=== PATIENT | female | born 1975 | race Caucasian/White ===

== ENCOUNTER 2018-11-14 12:10 | Observation (INO) | payer BC, MEDICAID, SELFPAY ==
[2018-11-14] MEDS ORDERED: Aspirin Chewable 81 MG TAB ONE (12:49)
--- NOTE | 2018-11-14 13:06 | RAD ---
PORTABLE CHEST 1 VIEW: DATE: 11/14/2018. TIME: 12:42 p.m. HISTORY: Chest pain. FINDINGS: Comparison is made to the exam of 09/26/2014. The heart size is normal. There are changes of median sternotomy. There is continued elevation of t he right hemidiaphragm. No focal areas of consolidation, pneumothoraces, or pleural effusions are se en. IMPRESSION: No acute process. POS: ILEANA
[2018-11-14 13:33] LABS: #Basophils 0.1 thou/uL (0.0-0.2); #Eosinphils 0.1 thou/uL (0.0-0.7); #Lymphocytes 1.5 thou/uL (1.20-3.40); #Monocytes 0.4 thou/uL (0.11-0.59); #Neutrophils 5.7 thou/uL (1.40-6.50); %Basophils 0.7 % (0.0-1.0); %Eosinophils 1.6 % (0.0-10.0); %Lymphocytes 18.8 % (21.0-51.0); %Monocytes 4.8 % (0.0-10.0); %Neutrophils 74.2 % (42.0-75.0); Mean Corpuscular Hemoglobin 32.7 pg (27.0-31.0); Mean Corpuscular Volume 96.1 fL (78.0-98.0); Mean Platelet Volume 7.1 fL (7.4-10.4); Platelet Count 314 thou/uL (130-400); RBC Distribution Width 10.9 % (11.5-14.5); Red Blood Cell (RBC) Count 4.29 mill/uL (4.20-5.40); White Blood Cell (WBC) Count 7.7 thou/uL (4.8-10.8)
[2018-11-14] MEDS ORDERED: Nitroglycerin 2% Ointment 1 INCH/1 GM Packet ONE (13:37)
[2018-11-14 13:38] LABS: PTT 29.4 SEC (22.9-36.1); Prothrombin Time 13.4 SEC (12.0-14.7)
[2018-11-14 13:40] LABS: ALT (SGPT) 20 U/L (8-55); AST (SGOT) 14 U/L (5-34); Albumin 4.3 g/dL (3.5-5.0); Alkaline Phosphatase 77 U/L (40-150); Anion Gap 14 mmol/L (10-20); BUN (Urea Nitrogen) 11 mg/dL (7.0-18.7); Bilirubin, Total 0.7 mg/dL (0.2-1.2); Calc. Creatinine Clearance 0 mL/min (70-130); Calcium 9.3 mg/dL (7.8-10.44); Carbon Dioxide 21 mmol/L (22-29); Chloride 108 mmol/L (98-107); Estimated GFR-MDRD 70; Globulin 3.1 g/dL (2.4-3.5); Glucose 120 mg/dL (70-105); Protein, Total 7.4 g/dL (6.0-8.3); Sodium 139 mmol/L (136-145)
[2018-11-14 13:42] LABS: D-Dimer Test Less than 0.27 *mcg/mL (0.27-0.43)
[2018-11-14] MEDS ORDERED: Acetaminophen 325 MG TAB PO PRN (14:48)
[2018-11-14] MEDS ORDERED: Guaifenesin DM 100-10/5 ML UDCUP PO PRN (14:48)
--- NOTE | 2018-11-14 15:24 | HP ---
REASON FOR ADMISSION: Chest pain. HISTORY OF PRESENTING ILLNESS: The patient gives history of off and on chest pain from last 4 days now. It is more of a pressure-like feeling in the retrosternal area. There are no complaints of cough or expectoration. The chest pressure usually lasts for 15-20 minutes and eases up by itself. This has no relation to exertion. The patient has a significant history of prior coronary artery bypass graft done in 2011 and has had nearly 3 stents placed after that. She says she has not been able to take any medications. She has got no financial resources for the same for last 6 months. No complaints of cough or expectoration. No history of fever. The patient's primary senior process engineer is Dr. Bain and she has not seen him for the last one year or so now. PAST MEDICAL AND SURGICAL HISTORY: History of CABG done in 2011 for one vessel disease. The patient has had nearly 3 stents placed, after that on two different settings. The last one being in [address] Bain. Hypertension, dyslipidemia , obesity, . MEDICATIONS: Current medication none. The patient was on aspirin, Norvasc, Lipitor, Plavix, Ranexa, Imdur before, but has not been taking any of this for the last 6 months or so now. ALLERGIES: SHE IS ALLERGIC TO MORPHINE. PERSONAL HISTORY: Does not abuse alcohol or drugs. No history of smoking. FAMILY HISTORY: Mother at the age of 65 years. She has had history of coronary artery disease and CKD. Father at the age of 74, has had history of coronary artery disease. CODE STATUS: Full. REVIEW OF SYSTEMS: CONSTITUTIONAL: Negative for weight loss or gain, ability to conduct usual activities. SKIN: Negative for rash, itching. EYES: Negative for double vision, pain. ENT/MOUTH: Negative for nose bleeding, neck stiffness, pain, tenderness. CARDIOVASCULAR: Negative for palpitations, dyspnea on exertion, orthopnea. RESPIRATORY: Negative for shortness of breath, wheezing, cough, hemoptysis, fever or night sweats. GASTROINTESTINAL: Negative for poor appetite, abdominal pain, heartburn, nausea , vomiting, constipation, or diarrhea. GENITOURINARY: Negative for urgency, frequency, dysuria, nocturia. MUSCULOSKELETAL: Negative for pain, swelling. NEUROLOGIC/PSYCHIATRIC: Negative for anxiety, depression. ALLERGY/IMMUNOLOGIC: Negative for skin rash, bleeding tendency. PHYSICAL EXAMINATION: GENERAL: The patient is a 43-year-old female who is currently not in any acute distress and is chest pain-free at present. VITAL SIGNS: Blood pressure 174/96, pulse 80 per minute, respiratory rate 20 per minute, temperature 98.2 degrees Fahrenheit, saturating 97% on room air. NECK: Supple. No elevated JVD. HEENT: Eyes; extraocular muscles intact. Pupils reacting to light. Oral cavity, mucous membranes are moist. No exudates or congestion. CARDIOVASCULAR: S1 and S2 heard. Regular rhythm. RESPIRATORY: Air entry 2+ bilateral. No rales or rhonchi. ABDOMEN: Soft, bowel sounds heard. No tenderness, rigidity, or guarding. EXTREMITIES: No peripheral edema or calf tenderness. VASCULAR SYSTEM: Peripheral pulses 1+ bilateral. No ischemic ulcerations or gangrene. CENTRAL NERVOUS SYSTEM: No gross focal deficits noted. The patient is alert, awake, and oriented well. PSYCHIATRIC: The patient's mood is euthymic. No hallucinations or delusions. LABORATORY DATA: White count of 7.7, H and H of 14 and 41, platelet count of 314, MCV is 96, with 74% neutrophils. PT, INR, PTT within normal limits. D-dimer is less than 0.27. Serum bicarb 21, BUN 11, creatinine 0.8, serum glucose 120. Troponin x1 is negative. BNP is 47. Albumin is 4.3. Liver enzymes within normal limits. Chest x-ray, no acute cardiopulmonary abnormalities. EKG done shows normal sinus rhythm at 82 beats per minute. There is Q-waves seen in V2, V3 with poor R-wave progression. CLINICAL IMPRESSION AND PLAN: The patient will be under observation on telemetry for chest pain, rule out acute coronary syndrome. She has had 3 recurrent episodes irrespective of exertion. The patient has been noncompliant with medication due to financial resources. She has significant history of CABG for one-vessel disease and later has had nearly 3 stents placed. In view of noncompliance, we will obtain two more sets of troponin and a nuclear stress test in the morning. We will place her on aspirin, Norvasc, Lipitor, small dose of Lopressor and Ranexa. Job ID: [id number] [facility]
[2018-11-14] MEDS: Nitroglycerin 0.4 MG TAB (25 Tab Bottle) PO PRN ×2 (18:40→18:53)
[2018-11-14 19:48] VITALS: BMI 41.5
[2018-11-14] MEDS: Famotidine 20 MG TAB PO SCH (20:40)
[2018-11-14] MEDS: Metoprolol Tartrate 25 MG TAB PO SCH (20:40)
[2018-11-14] MEDS ORDERED: Ondansetron PF 4 MG/2 ML Vial SLOW IVP PRN (22:06)
[2018-11-14] MEDS ORDERED: Calcium Carbonate 500 MG ChewTAB PO PRN (22:06)
[2018-11-14 22:11] LABS: Pregnancy Test - Urine (BHCG) Negative (Negative); Pregu Control Background? CLEAR/WHITE (CLR/WHITE); Pregu Control Bar Appear? YES (CONTROL BAR); Specific Gravity 1.024 (1.002-1.036)
[2018-11-15 06:07] LABS: #Basophils 0.1 thou/uL (0.0-0.2); #Eosinphils 0.4 thou/uL (0.0-0.7); #Lymphocytes 2.2 thou/uL (1.20-3.40); #Monocytes 0.6 thou/uL (0.11-0.59); #Neutrophils 3.6 thou/uL (1.40-6.50); %Eosinophils 5.5 % (0.0-10.0); %Lymphocytes 32.1 % (21.0-51.0); %Monocytes 8.4 % (0.0-10.0); Hemoglobin 12.9 g/dL (12.0-16.0); Mean Corpuscular HGB CONC 34.1 g/dL (32.0-36.0); Mean Corpuscular Volume 96.7 fL (78.0-98.0); Mean Platelet Volume 7.2 fL (7.4-10.4); Platelet Count 291 thou/uL (130-400); RBC Distribution Width 10.9 % (11.5-14.5); White Blood Cell (WBC) Count 6.7 thou/uL (4.8-10.8)
[2018-11-15 06:35] LABS: Anion Gap 12 mmol/L (10-20); BUN (Urea Nitrogen) 10 mg/dL (7.0-18.7); Calc. Creatinine Clearance 149 mL/min (70-130); Calcium 9.1 mg/dL (7.8-10.44); Carbon Dioxide 24 mmol/L (22-29); Chloride 108 mmol/L (98-107); Cholesterol 181 mg/dl (< 200 Desired); Estimated GFR-MDRD 72; Glucose 105 mg/dL (70-105); HDL Cholesterol 30 mg/dL (>60 Neg Risk); LDL Cholesterol, Calculated 130 mg/dL; Sodium 140 mmol/L (136-145); Triglycerides 105 mg/dL (Less than 150)
[2018-11-15] MEDS ORDERED: Atorvastatin Calcium 20 MG TAB PO SCH (09:00)
--- NOTE | 2018-11-15 10:25 | PDOC.PN ---
- Subjective Encounter Start Date: 11/15/18 Encounter Start Time: 09:45 Subjective: no current chest pain or palp or sob - Objective Resuscitation Status - Order Detail: 11/14/18 14:44 Resuscitation Status Routine Resuscitation Status: FULL: Full Resuscitation MAR Reviewed: Yes Vital Signs & Weight: Vital Signs (12 hours) Temp Pulse Resp BP Pulse Ox 11/15/18 07:40 98.5 F 62 17 146/81 H 98 11/15/18 04:04 98.0 F 75 16 137/86 95 11/14/18 23:16 98.6 F 78 16 150/79 H 98 Weight Weight 249 lb 6.4 oz I&O: 11/14/18 11/15/18 11/16/18 06:59 06:59 06:59 Intake Total 292 Output Total 300 Balance -8 Result Diagrams: 11/15/18 05:48 11/15/18 05:48 Phys Exam - Physical Examination HEENT: PERRLA, moist MMs Neck: no JVD, supple Respiratory: no wheezing, no rales Cardiovascular: RRR, no significant murmur Gastrointestinal: soft, non-tender, positive bowel sounds Musculoskeletal: no edema, pulses present Neurological: non-focal, moves all 4 limbs Psychiatric: normal affect, A&O x 3 Dx/Plan (1) Chest pain Code(s): R07.9 - CHEST PAIN, UNSPECIFIED Status: Acute (2) Dyslipidemia Code(s): E78.5 - HYPERLIPIDEMIA, UNSPECIFIED Status: Chronic (3) CAD (coronary artery disease) Code(s): I25.10 - ATHSCL HEART DISEASE OF [place] CORONARY ARTERY W/O ANG PCTRS Status: Chronic Qualifiers: Coronary Disease-Associated Artery/Lesion type: bypass graft [place] vs. transplanted heart: [place] heart Associated angina: with stable angina Qualified Code(s): I25.708 - Atherosclerosis of coronary artery bypass graft(s) , unspecified, with other forms of angina pectoris (4) Obesities, morbid Code(s): E66.01 - MORBID (SEVERE) OBESITY DUE TO EXCESS CALORIES Status: Chronic (5) Hypertension Code(s): I10 - ESSENTIAL (PRIMARY) HYPERTENSION Status: Chronic Qualifiers: Hypertension type: essential hypertension Qualified Code(s): I10 - Essential (primary) hypertension - Plan non compliant with meds due to financial reasons -: will need referral to [facility] for all -: d/w Case mgmt, will on 4$ meds on dc -: await stress results, may dc home if -ve -: on asp, lopressor, lisinopril, imdur (switch from ranexa), lipitor * . Review of Systems - Medications/Allergies Allergies/Adverse Reactions: Allergies Allergy/AdvReac Type Severity Reaction Status Date / Time morphine Allergy Verified 04/13/14 13:40 Medications: Current Medications Acetaminophen (Tylenol) 650 mg PO Q4H PRN PRN Reason: Headache/Fever/Mild Pain (1-3) Amlodipine Besylate (Norvasc) 5 mg PO DAILY [facility] Aspirin (Aspirin) 325 mg PO DAILY [facility] Atorvastatin Calcium (Lipitor) 20 mg PO DAILY [facility] Calcium Carbonate (Tums) 1,000 mg PO Q6H PRN PRN Reason: Indigestion Enoxaparin Sodium (Lovenox) 40 mg SC 0900 [facility] Famotidine (Pepcid) 20 mg PO BID [facility] Last Admin: 11/14/18 20:40 Dose: 20 mg Guaifenesin/Dextromethorphan (Robitussin Dm) 15 ml PO Q4H PRN PRN Reason: Cough Metoprolol Tartrate (Lopressor) 12.5 mg PO BID [facility] Last Admin: 11/14/18 20:40 Dose: 12.5 mg Nitroglycerin (Nitrostat) 0.4 mg PO Q5MIN PRN PRN Reason: Chest Pain Last Admin: 11/14/18 18:53 Dose: 0.4 mg Ondansetron HCl (Zofran) 4 mg SLOW IVP Q6H PRN PRN Reason: Nausea/Vomiting Last Admin: 11/14/18 22:10 Dose: 4 mg Ranolazine (Ranexa) 500 mg PO BID [facility] Last Admin: 11/14/18 20:40 Dose: 500 mg Sodium Chloride (Flush - Normal Saline) 10 ml IVF Q12HR [facility] Sodium Chloride (Flush - Normal Saline) 10 ml IVF PRN PRN PRN Reason: Saline Flush Last Admin: 11/14/18 22:10 Dose: 10 ml
[2018-11-15] MEDS: Aspirin 325 MG TAB PO SCH (10:47)
[2018-11-15] MEDS: Metoprolol Tartrate 25 MG TAB PO SCH ×2 (10:47→21:01)
[2018-11-15] MEDS: Famotidine 20 MG TAB PO SCH ×2 (10:47→21:01)
[2018-11-15] MEDS: Amlodipine 5 MG TAB PO SCH (10:47)
[2018-11-15] MEDS: Enoxaparin Sodium 40 MG/0.4 ML SYRINGE SC SCH (10:48)
--- NOTE | 2018-11-15 13:54 | NM ---
NUCLEAR MEDICINE CARDIAC MYOCARDIAL PERFUSION SPECT EJECTION FRACTION STUDY WALL MOTION CINE: DATE: 11/15/2018. HISTORY: A 43-year-old female with hypertension, dyslipidemia, and coronary artery disease, status post ayala ry artery bypass graft surgery, presents with chest pain. TECHNIQUE: Number of days: 1. Rest study: Tc99m sestamibi (Cardiolite) dose: 28.0 mCi. Pharmacologic stress: adenosine dose: 63.3 mg. Stress study: Tc99m sestamibi (Cardiolite) dose: 29.0 mCi. FINDINGS: CARDIAC (MYOCARDIAL PERFUSION) SPECT On the stress images, there is a subtle finding of a small focal perfusion defect at the apex, includ ing adjacent apicoanterior wall. This is defect is not present on the rest images. No other perfusi on defects. No chamber dilation. EJECTION FRACTION STUDY EF = 71%. WALL MOTION CINE Normal. IMPRESSION: Questionable small focus of reversible ischemia at the cardiac apex. SALIMA Packer POS: ILEANA
--- NOTE | 2018-11-15 20:06 | EKG ---
Test Reason : STAT Blood Pressure : / mmHG Vent. Rate : 105 BPM Atrial Rate : 105 BPM P-R Int : 144 ms QRS Dur : 072 ms QT Int : 362 ms P-R-T Axes : 057 029 056 degrees QTc Int : 478 ms Sinus tachycardia Cannot rule out Anterior infarct (cited on or before 14-NOV-2018) Abnormal ECG When compared with ECG of 14-NOV-2018 12:21, (Unconfirmed) No significant change was found Confirmed by MARIANO WONG, SRoro ([id number]) on 11/15/2018 8:05:29 PM Referred By: AARTI Confirmed By:DR. Herminia QUINTANA MD
--- NOTE | 2018-11-16 01:02 | CON ---
DATE OF CONSULTATION: HISTORY OF PRESENT ILLNESS: Zina Amaral is a 43-year-old white female, who is a patient of Dr. Sage Bain. She underwent bypass surgery here by Dr. Rae in November 2011. She had 70% ostial LAD lesion at the left main and underwent off-pump RIVERA to the LAD. Since that time, she states that she has had stents placed on 2 occasions. She thinks two placed the first time and one the second time. Her last stent procedure was approximately 2 years ago. She ran out of all of her medications 6 months ago and has not really taken any medicine since that time. Over the last 3 to 4 days, she has been having increasing episodes of chest discomfort that would last 15 to 20 minutes. There is no relation to exertion. PAST MEDICAL HISTORY: Coronary artery disease, hypercholesterolemia, hypertension, obesity. OPERATIONS: CABG and . SOCIAL HISTORY: She has never smoked. She does not drink. MEDICATIONS: None (apparently her medications before she ran out were amlodipine 2.5 daily, aspirin 81 daily, atorvastatin 40 mg daily, Plavix 75 mg daily, isosorbide mononitrate 30 daily, metoprolol 50 b.i.d., Nitrostat 0.4 mg sublingually p.r.n., Protonix 40 daily, Ranexa 500 b.i.d.). ALLERGIES: MORPHINE. FAMILY HISTORY: Both mother and father had coronary artery disease. REVIEW OF SYSTEMS: A 12-point review of systems is otherwise unremarkable. PHYSICAL EXAMINATION: VITAL SIGNS: Blood pressure 121/95, pulse of 71. HEENT: PERRL. NECK: Supple. CHEST: Clear. CARDIAC: S1 and S2 normal without any S3, S4, or murmurs. ABDOMEN: Normal bowel sounds without tenderness or organomegaly. ABDOMEN: Obese. EXTREMITIES: Revealed no clubbing, cyanosis, or edema. NEUROLOGIC: Grossly intact. SKIN: Warm and dry. LABORATORY DATA: EKG reveals normal sinus rhythm with poor R-wave progression. CBC is unremarkable. INR 1.0. Sodium 140, potassium 4.0, chloride 108, carbon dioxide 24, BUN 10, creatinine 0.86. Cardiac enzymes were negative x3. Cholesterol 181 , triglycerides 105, LDL 130, HDL 30. Adenosine Cardiolite test revealed a small focal perfusion defect at the apex consistent with ischemia. Ejection fraction of 71%. IMPRESSION: 1. Acute coronary syndrome with finding of apical ischemia. She thinks that at least one of her stents were placed in her bypass graft. 2. Status post coronary artery bypass grafting x1 with RIVERA to the LAD in November 2011. 3. Two stent procedures with 3 stents being placed, the last of which was approximately 2 years ago. 4. Hypertension. 5. Hypercholesterolemia, untreated. 6. Obesity. PLAN: Situation discussed with the patient. It was recommended she undergo cardiac catheterization. Risks were discussed including , myocardial infarction, dye reaction, vascular injury, CVA, transfusion, limb loss, renal loss, etc. Also risks of intervention with PTCA and stent placement were discussed including , myocardial infarction, emergent CABG, restenosis, stent thrombosis, vessel perforation, etc. With her history of noncompliance and inability to get her medicines, I would only place a bare-metal stent. Job ID: [id number] [facility]
[2018-11-16] MEDS ORDERED: Heparin 10,000 UNITS/1 ML VIAL ONE (06:33)
[2018-11-16] MEDS ORDERED: Fentanyl 100 MCG/2 ML VIAL ONE (07:07)
[2018-11-16] MEDS ORDERED: Midazolam HCl 2 mg/2 ml Vial ONE (07:07)
[2018-11-16] MEDS ORDERED: Protamine Sulfate 50 MG/5 ML VIAL ONE (07:55)
[2018-11-16] MEDS ORDERED: Nitroglycerin 0.4 MG TAB (25 Tab Bottle) SL PRN (08:14)
[2018-11-16] MEDS ORDERED: Sodium Chloride 0.9% 200 ML IV SCH (08:15)
[2018-11-16] MEDS ORDERED: Sodium Chloride 0.9% 1,000 ML IV SCH (08:15)
[2018-11-16] MEDS ORDERED: Iopamidol 370 76% 50 ML VIAL FS ONE (10:02)
[2018-11-16] MEDS ORDERED: Iopamidol 370 76% 100 ML VIAL ONE (10:02)
[2018-11-16] MEDS: Enoxaparin Sodium 40 MG/0.4 ML SYRINGE SC SCH (10:18)
--- NOTE | 2018-11-16 10:19 | PDOC.PN ---
- Subjective Encounter Start Date: 11/16/18 Encounter Start Time: 09:15 Subjective: no chest pain or sob -: just had cath this morning - Objective Resuscitation Status - Order Detail: 11/14/18 14:44 Resuscitation Status Routine Resuscitation Status: FULL: Full Resuscitation MAR Reviewed: Yes Vital Signs & Weight: Vital Signs (12 hours) Temp Pulse Resp BP Pulse Ox 11/16/18 05:27 97.5 F L 76 15 136/73 98 Weight Weight 249 lb 9.6 oz I&O: 11/15/18 11/16/18 11/17/18 06:59 06:59 06:59 Intake Total 292 1680 Output Total 300 1400 Balance -8 280 Result Diagrams: 11/15/18 05:48 11/15/18 05:48 Phys Exam - Physical Examination HEENT: PERRLA, moist MMs Neck: no JVD, supple Respiratory: no wheezing, no rales Cardiovascular: RRR, no significant murmur Gastrointestinal: soft, non-tender, positive bowel sounds Musculoskeletal: no edema, pulses present Neurological: non-focal, moves all 4 limbs Psychiatric: normal affect, A&O x 3 Dx/Plan (1) Chest pain Code(s): R07.9 - CHEST PAIN, UNSPECIFIED Status: Acute Qualifiers: Chest pain type: chest pain due to myocardial ischemia Ischemic chest pain type: unstable angina pectoris Qualified Code(s): I20.0 - Unstable angina (2) Dyslipidemia Code(s): E78.5 - HYPERLIPIDEMIA, UNSPECIFIED Status: Chronic (3) CAD (coronary artery disease) Code(s): I25.10 - ATHSCL HEART DISEASE OF [place] CORONARY ARTERY W/O ANG PCTRS Status: Chronic Qualifiers: Coronary Disease-Associated Artery/Lesion type: bypass graft [place] vs. transplanted heart: [place] heart Associated angina: with stable angina Qualified Code(s): I25.708 - Atherosclerosis of coronary artery bypass graft(s) , unspecified, with other forms of angina pectoris Comment: plus 3 prior stents (4) Obesities, morbid Code(s): E66.01 - MORBID (SEVERE) OBESITY DUE TO EXCESS CALORIES Status: Chronic (5) Hypertension Code(s): I10 - ESSENTIAL (PRIMARY) HYPERTENSION Status: Chronic Qualifiers: Hypertension type: essential hypertension Qualified Code(s): I10 - Essential (primary) hypertension - Plan cath results noted -: awaiting surgical opinion -: is on asp, lipitor,lopressor and lisinopril -: pastoral consult -: her brother and family will arrive to be with her * . Review of Systems - Medications/Allergies Allergies/Adverse Reactions: Allergies Allergy/AdvReac Type Severity Reaction Status Date / Time adhesive tape Allergy Verified 11/16/18 02:38 morphine Allergy Verified 04/13/14 13:40 Medications: Current Medications Acetaminophen (Tylenol) 650 mg PO Q4H PRN PRN Reason: Headache/Fever/Mild Pain (1-3) Amlodipine Besylate (Norvasc) 5 mg PO DAILY [facility] Last Admin: 11/15/18 10:47 Dose: 5 mg Aspirin (Aspirin) 325 mg PO DAILY [facility] Last Admin: 11/15/18 10:47 Dose: 325 mg Atorvastatin Calcium (Lipitor) 40 mg PO HS [facility] Calcium Carbonate (Tums) 1,000 mg PO Q6H PRN PRN Reason: Indigestion Famotidine (Pepcid) 20 mg PO BID [facility] Last Admin: 11/15/18 21:01 Dose: 20 mg Guaifenesin/Dextromethorphan (Robitussin Dm) 15 ml PO Q4H PRN PRN Reason: Cough Sodium Chloride (Normal Saline 0.9%) 1,000 mls @ 125 mls/hr IV .Q8H [facility] Stop: 11/16/18 14:15 Sodium Chloride (Normal Saline 0.9%) 200 mls @ 0 mls/hr IV NOW [facility] Stop: 11/16/18 12:00 Last Admin: 11/16/18 10:10 Dose: Not Given Metoprolol Tartrate (Lopressor) 12.5 mg PO BID [facility] Last Admin: 11/15/18 21:01 Dose: 12.5 mg Nitroglycerin (Nitrostat) 0.4 mg SL Q5MIN PRN PRN Reason: Chest Pain Ondansetron HCl (Zofran) 4 mg SLOW IVP Q6H PRN PRN Reason: Nausea/Vomiting Last Admin: 11/14/18 22:10 Dose: 4 mg Ranolazine (Ranexa) 500 mg PO BID [facility] Last Admin: 11/15/18 21:01 Dose: 500 mg Sodium Chloride (Flush - Normal Saline) 10 ml IVF Q12HR [facility] Last Admin: 11/15/18 21:02 Dose: 10 ml Sodium Chloride (Flush - Normal Saline) 10 ml IVF PRN PRN PRN Reason: Saline Flush Last Admin: 11/14/18 22:10 Dose: 10 ml
[2018-11-16] MEDS: Famotidine 20 MG TAB PO SCH ×2 (10:35→20:38)
[2018-11-16] MEDS: Aspirin 325 MG TAB PO SCH (10:35)
[2018-11-16] MEDS: Metoprolol Tartrate 25 MG TAB PO SCH ×2 (10:36→20:38)
[2018-11-16] MEDS: Amlodipine 5 MG TAB PO SCH (10:36)
--- NOTE | 2018-11-16 19:13 | CON ---
DATE OF CONSULTATION: HISTORY OF PRESENT ILLNESS: This is a 43-year-old female, whom I performed a single-vessel bypass to her LAD in 2011. Due to recurrent symptoms of chest pain with negative cardiac enzymes, she underwent repeat cardiac catheterization in 2012 at the [facility] where she had stents to her proximal right coronary artery and LAD. She then underwent repeat cardiac catheterization on 3 more occasions most recently last year. Two years ago, she underwent stenting for a 70% circumflex stenosis, although once again, her stress test was negative and she had normal enzymes. Last year, she underwent cardiac catheterization and no stenosis other than in a diagonal branch were found. She was again admitted with negative cardiac enzymes at this time and a stress test that showed a very small area of perfusion at the apex with a normal ejection fraction. She underwent cardiac catheterization today and was found to have a patent RIVERA, had backfilled the LAD up to the left main before competitive flow overcame this. She had what appeared to be a 60% left main stenosis with a damping of the catheter. However, it should be noted that last year, her left main appeared normal and no interventions were done at that time, and other than the diagnostic angiogram. She has a diagonal with a stenosis, small LAD compared to her stent that is placed. The circumflex and right coronary arteries are unremarkable. PAST MEDICAL HISTORY: Significant for hypertension, dyslipidemia, and obesity. The patient has had multiple admissions to [place] and [place] in here including this time not being on any of her medications due to financial reasons. MEDICATIONS: Medications were supposed to be; 1. Amlodipine 2.5. 2. Aspirin 81. 3. Plavix 75. 4. Atorvastatin 40. 5. Isosorbide 30. 6. Metoprolol 50 b.i.d. 7. Protonix 40. 8. Ranexa 500 b.i.d. ALLERGIES: TO MORPHINE. SOCIAL HISTORY: She is nonsmoker and nondrinker. Does have 1 child. PHYSICAL EXAMINATION: GENERAL: Alert, cooperative lady, flat affect. Height 5 feet 5 inches and weight 249 pounds. NECK: No carotid bruits. LUNGS: Clear to auscultation anteriorly. Chest has a well-healed incision. CARDIAC: Regular rate and rhythm. No murmurs. ABDOMEN: Obese and nontender. EXTREMITIES: No peripheral edema. NEUROLOGIC: Intact. ASSESSMENT AND PLAN: I have discussed the situation with the patient and Dr. Borden. At this time, I think continued conservative management is appropriate. She has excellent flow into her coronary arteries through the [place] circulation such that there is competitive flow with her left internal mammary artery. Although, she does appear to have a left main stenosis of moderate degree. She did have a normal left main last year and I wonder whether she could have had some spasm during catheterization today. I think attempts at medical management are most appropriate rather than surgical intervention on this lady. Job ID: [id number] [facility]ITAL[facility]
[2018-11-16] MEDS ORDERED: Atorvastatin Calcium 40 MG TAB PO SCH (21:00)
[2018-11-17 08:17] VITALS: BP 132/76; TEMP 98
[2018-11-17] MEDS: Aspirin 325 MG TAB PO SCH (08:49)
[2018-11-17] MEDS: Metoprolol Tartrate 25 MG TAB PO SCH (08:49)
[2018-11-17] MEDS: Famotidine 20 MG TAB PO SCH (08:51)
[2018-11-17] MEDS: Amlodipine 5 MG TAB PO SCH (08:51)
--- NOTE | 2018-11-17 10:08 | PDOC.PN ---
- Subjective Encounter Start Date: 11/17/18 Encounter Start Time: 08:00 Subjective: no chest pain or sob or palp -: feels better - Objective Resuscitation Status - Order Detail: 11/14/18 14:44 Resuscitation Status Routine Resuscitation Status: FULL: Full Resuscitation MAR Reviewed: Yes Vital Signs & Weight: Vital Signs (12 hours) Temp Pulse Resp BP Pulse Ox 11/17/18 08:51 69 11/17/18 07:53 98.0 F 69 20 132/76 97 11/17/18 03:57 98.2 F 72 16 133/77 97 Weight Weight 249 lb 9.6 oz I&O: 11/16/18 11/17/18 11/18/18 06:59 06:59 06:59 Intake Total 1680 900 Output Total 1400 900 Balance 280 0 Result Diagrams: 11/15/18 05:48 11/15/18 05:48 Phys Exam - Physical Examination HEENT: PERRLA, moist MMs Neck: no JVD, supple Respiratory: no wheezing, no rales Cardiovascular: RRR, no significant murmur Gastrointestinal: soft, non-tender, positive bowel sounds Musculoskeletal: no edema, pulses present Neurological: non-focal, moves all 4 limbs Psychiatric: normal affect, A&O x 3 Dx/Plan (1) Chest pain Code(s): R07.9 - CHEST PAIN, UNSPECIFIED Status: Acute Qualifiers: Chest pain type: chest pain due to myocardial ischemia Ischemic chest pain type: unstable angina pectoris Qualified Code(s): I20.0 - Unstable angina (2) Dyslipidemia Code(s): E78.5 - HYPERLIPIDEMIA, UNSPECIFIED Status: Chronic (3) CAD (coronary artery disease) Code(s): I25.10 - ATHSCL HEART DISEASE OF [place] CORONARY ARTERY W/O ANG PCTRS Status: Chronic Qualifiers: Coronary Disease-Associated Artery/Lesion type: bypass graft [place] vs. transplanted heart: [place] heart Associated angina: with stable angina Qualified Code(s): I25.708 - Atherosclerosis of coronary artery bypass graft(s) , unspecified, with other forms of angina pectoris Comment: plus 3 prior stents (4) Obesities, morbid Code(s): E66.01 - MORBID (SEVERE) OBESITY DUE TO EXCESS CALORIES Status: Chronic (5) Hypertension Code(s): I10 - ESSENTIAL (PRIMARY) HYPERTENSION Status: Chronic Qualifiers: Hypertension type: essential hypertension Qualified Code(s): I10 - Essential (primary) hypertension - Plan hemostable -: for med mgmt -: counselled reg med and dietary compliance -: dc pt home * . Review of Systems - Medications/Allergies Allergies/Adverse Reactions: Allergies Allergy/AdvReac Type Severity Reaction Status Date / Time adhesive tape Allergy Verified 11/16/18 02:38 morphine Allergy Verified 04/13/14 13:40 Medications: Current Medications Acetaminophen (Tylenol) 650 mg PO Q4H PRN PRN Reason: Headache/Fever/Mild Pain (1-3) Amlodipine Besylate (Norvasc) 5 mg PO DAILY [facility] Last Admin: 11/17/18 08:51 Dose: 5 mg Aspirin (Aspirin) 325 mg PO DAILY [facility] Last Admin: 11/17/18 08:49 Dose: 325 mg Atorvastatin Calcium (Lipitor) 40 mg PO HS [facility] Last Admin: 11/16/18 20:38 Dose: 40 mg Calcium Carbonate (Tums) 1,000 mg PO Q6H PRN PRN Reason: Indigestion Famotidine (Pepcid) 20 mg PO BID [facility] Last Admin: 11/17/18 08:51 Dose: 20 mg Guaifenesin/Dextromethorphan (Robitussin Dm) 15 ml PO Q4H PRN PRN Reason: Cough Metoprolol Tartrate (Lopressor) 12.5 mg PO BID [facility] Last Admin: 11/17/18 08:49 Dose: 12.5 mg Nitroglycerin (Nitrostat) 0.4 mg SL Q5MIN PRN PRN Reason: Chest Pain Ondansetron HCl (Zofran) 4 mg SLOW IVP Q6H PRN PRN Reason: Nausea/Vomiting Last Admin: 11/14/18 22:10 Dose: 4 mg Sodium Chloride (Flush - Normal Saline) 10 ml IVF Q12HR [facility] Last Admin: 11/16/18 20:40 Dose: 10 ml Sodium Chloride (Flush - Normal Saline) 10 ml IVF PRN PRN PRN Reason: Saline Flush Last Admin: 11/14/18 22:10 Dose: 10 ml
--- NOTE | 2018-11-17 15:12 | DIS ---
DATE OF ADMISSION: 11/14/2018 DATE OF DISCHARGE: 11/17/2018 DISCHARGE DISPOSITION: Home. PRIMARY DISCHARGE DIAGNOSES: Chest pain with unstable angina, stable; coronary artery disease with prior history of CABG and three prior stents with patent LAD graft and three other stents; hypertension; obesity; dyslipidemia; noncompliance with medication. PROCEDURES DONE DURING HOSPITALIZATION: The patient had nuclear stress test done, which showed questionable small focus of reversible ischemia at the cardiac apex. Coronary angiogram done by Dr. Dahl showed patent proximal LAD, proximal circumflex and proximal and mid RCA stents. Small patent RIVERA to LAD. Mildly impaired LV function. Left main showed ventricularization of pressure waveform at 60 mm of pressure with dampening. H and H 12 and 37, platelet count 291. Troponin x3 negative. Total cholesterol 181, triglycerides 105, LDL 130, HDL 30. BNP 47. Urine test is negative. DISCHARGE MEDICATIONS: 1. Aspirin 81 mg p.o. daily. 2. Norvasc 5 mg p.o. daily. 3. Atorvastatin 40 mg p.o. daily. 4. Lopressor 12.5 mg p.o. twice daily. 5. Nitroglycerin 0.4 mg sublingual q.5 minutes p.r.n. for chest pain. ALLERGIES: MORPHINE AND ADHESIVE TAPE. INPATIENT CONSULTS: Dr. Dahl for Cardiology, Dr. Rae for Cardiovascular Surgery. BRIEF COURSE DURING HOSPITALIZATION: The patient initially came to ER with complaints of off and on chest pain for last three days. In view of prior history of coronary artery disease with 3 stents and CABG for one-vessel disease in 2011 , the patient was placed under observation on telemetry. She has had three sets of troponin done, which were negative. Nuclear stress test done showed possible reversible ischemia at the apex. The patient was noncompliant with medications for the last 6 months at least with her not taking any medication due to financial reasons. She has had consultation with Dr. Dahl. Her angiogram findings have been mentioned above. She has had consultation with Dr. Rae, Cardiovascular Surgery as well. The patient was seen to have excellent flow in the coronary arteries through the kaibab circulation with competitive flow in the RIVERA. She remained chest pain free and she is for medical management. She was counseled with regard to dietary and medication compliance. Medication assistance was provided as well. She will be shortly discharged to home. Please see a [id number] documentation for the day of discharge on [facility]. Job ID: [id number] MTDD
--- NOTE | 2018-11-18 09:16 | STRESS ---
Acquisition Time: 2018-11-15 09:36:14 Total Exercise Time: 00:04:00 Test Indications: CHEST PAIN Medications: Protocol: ADENOSINE Max HR: 106 BPM 60% of Pred: 176 BPM Max BP: 132/080 mmHG Max Work Load: 1.0 METS RESTING ECG: NORMAL SINUS RHYTHM AT 60 BPM SYMPTOMS: DYSPNEA NORMAL BP RESPONSE ECTOPY: NONE ECG STRESS: NO SIGNIFICANT CHANGES INTERPRETATION: AWAIT NUCLEAR IMAGES FOR DEFINITIVE DIAGNOSIS Confirmed by GREG LI ([id number]), food editor DEEPIKA MÉNDEZ ([id number]) on 11/18/2018 9:15:12 AM Referred By: MD Israel BROUSSARD Confirmed By:GREG LI
== END 2018-11-17 11:30 | disposition home or self-care (01) ==
LOC: ERS 12:10 → ERHOLD 14:59 → 2SW 17:13
PROVIDERS: ADMIT Internal Medicine; ATTEND Internal Medicine
PROC: 4A023N7 Measurement of Cardiac Sampling and Pressure, Left Heart, Percutaneous Approach (ICD-10-PCS; principal; 2018-11-16)
PROC: B2111ZZ Fluoroscopy of Multiple Coronary Arteries using Low Osmolar Contrast (ICD-10-PCS; 2018-11-16)
DX: I25.110 Atherosclerotic heart disease of native coronary artery with unstable angina pectoris (principal); I10 Essential (primary) hypertension; E78.5 Hyperlipidemia, unspecified; E78.00 Pure hypercholesterolemia, unspecified; E66.01 Morbid (severe) obesity due to excess calories; Z68.41 Body mass index [BMI] 40.0-44.9, adult; Z88.5 Allergy status to narcotic agent; Z91.048 Other nonmedicinal substance allergy status; Z95.5 Presence of coronary angioplasty implant and graft; Z95.1 Presence of aortocoronary bypass graft; Z91.14 Patient's other noncompliance with medication regimen
CPT/HCPCS: 36415; 71045; 76942; 78452; 80048; 80053; 80061; 81025; 83880; 84484; 85025; 85379; 85610; 85730; 93005; 93010; 93017; 93459; 94760; 96374; 99152; 99153; A9500; C1769; G0378; J0153; J1644; J1650; J2250; J2405; J2720; J3010; Q9967

== ENCOUNTER 2018-12-15 14:13 | Emergency (ER) | payer MEDICAID | END 2018-12-15 16:42 | disposition home or self-care (01) | LOC: ERS 14:13 | DX: M26.602 Left temporomandibular joint disorder, unspecified (principal); I25.10 Atherosclerotic heart disease of native coronary artery without angina pectoris; E78.5 Hyperlipidemia, unspecified; I10 Essential (primary) hypertension; F32.9 Major depressive disorder, single episode, unspecified | CPT/HCPCS: 99283 ==

== ENCOUNTER 2023-04-24 08:37 | Emergency (ER) | payer MEDICAID, OTHER, SELFPAY ==
[2023-04-24 09:17] LABS: #Basophils 0.1 thou/uL (0.0-0.2); #Eosinphils 0.2 thou/uL (0.0-0.7); #Monocytes 0.4 thou/uL (0.11-0.59); #Neutrophils 6.5 thou/uL (1.40-6.50); %Basophils 0.6 % (0.0-1.0); %Eosinophils 1.9 % (0.0-10.0); %Lymphocytes 15.3 % (21.0-51.0); %Monocytes 5.2 % (0.0-10.0); %Neutrophils 76.5 % (42.0-75.0); Hemoglobin 14.1 g/dL (12.0-16.0); Mean Corpuscular HGB CONC 34.4 g/dL (32.0-36.0); Mean Corpuscular Hemoglobin 31.9 pg (27.0-31.0); Mean Corpuscular Volume 92.8 fl (78.0-98.0); Mean Platelet Volume 10.5 fL (7.4-10.4); Platelet Count 250 10x3/uL (130-400); RBC Distribution Width 12.1 % (11.5-14.5); Red Blood Cell (RBC) Count 4.42 mill/uL (4.20-5.40); White Blood Cell (WBC) Count 8.5 10x3/uL (4.8-10.8)
[2023-04-24] MEDS ORDERED: Aspirin Chewable 81 MG TAB ONE (09:25)
[2023-04-24 09:40] LABS: ALT (SGPT) 67 U/L (8-55); AST (SGOT) 101 U/L (5-34); Albumin 3.7 g/dL (3.5-5.0); Alkaline Phosphatase 90 U/L (40-110); Anion Gap 16 mmol/L (10-20); BUN (Urea Nitrogen) 13 mg/dL (7.0-18.7); Bilirubin, Total 0.8 mg/dL (0.2-1.2); Calc. Creatinine Clearance 0 mL/min (70-130); Calcium 8.9 mg/dL (7.8-10.44); Carbon Dioxide 23 mmol/L (22-29); Chloride 100 mmol/L (98-107); Estimated GFR 65; Globulin 2.4 g/dL (2.4-3.5); Glucose 344 mg/dL (70-105); Potassium 4.5 mmol/L (3.5-5.1); Protein, Total 6.1 g/dL (6.0-8.3); Sodium 134 mmol/L (136-145)
[2023-04-24 10:18] LABS: Magnesium 1.6 mg/dL (1.6-2.6)
[2023-04-24 10:45] LABS: Bilirubin Negative (Negative); Blood, Urine Negative (Negative); CAUTI Indications for Culture Dysuria,urgency,freq; Clarity Clear (Clear); Glucose, Urine (Dipstick) Greater than 1000 mg/dL (Negative); Ketone, Urine 10 mg/dL (Negative); Leukocyte Negative Leu/uL (Negative); Nitrite Negative (Negative); Protein, Urine (Dipstick) Negative (Neg-Trace); RBC/HPF 0-3 HPF (0-3); Specific Gravity, Urine 1.014 (1.002-1.036); Squamous Epithelial 0-3 HPF (0-3); Urobilinogen Normal mg/dL (Less than 2); WBC/HPF 0-3 HPF (0-3)
[2023-04-24 10:49] LABS: Bacteria/HPF Rare-Few HPF (None Seen)
[2023-04-24 10:51] LABS: Urine Culture Reflex No No
[2023-04-24] MEDS ORDERED: Ondansetron PF 4 MG/2 ML Vial ONE (11:12)
== END 2023-04-24 14:16 | disposition home or self-care (01) ==
LOC: ERS 08:37
DX: E11.65 Type 2 diabetes mellitus with hyperglycemia (principal); R07.9 Chest pain, unspecified; R42 Dizziness and giddiness; I25.10 Atherosclerotic heart disease of native coronary artery without angina pectoris; E78.5 Hyperlipidemia, unspecified; I10 Essential (primary) hypertension; Z79.82 Long term (current) use of aspirin; Z79.899 Other long term (current) drug therapy; Z79.84 Long term (current) use of oral hypoglycemic drugs; Z79.4 Long term (current) use of insulin
CPT/HCPCS: 36415; 36416; 71045; 80053; 81001; 82010; 83735; 84484; 85025; 93005; 94760; 96361; 96374; J2405